=== PATIENT | male | born 1945 | race Caucasian/White ===

== ENCOUNTER 2017-03-26 13:36 | Emergency (ER) | payer OTHER ==
[~2017-03-26] VITALS: Ht 165.1 cm; Wt 73.9 kg
[2017-03-26] MEDS ORDERED: ATOR40TA PO (14:00)
[2017-03-26] MEDS ORDERED: RISP1TAB27 PO (14:00)
--- NOTE | 2017-03-26 14:00 | NUR ---
PT STATES THAT HE IS TAKING ONLY 2 MEDICATION AT HOME ON CONSTANT BASIS, BECAUSE HE CAN NOT AFFORD TO BUY OTHER PRESCRIBED MEDICATIONS.
--- NOTE | 2017-03-26 14:23 | NUR ---
PT WAS CALLED TO ER ROOM , NO ANSWER.
--- NOTE | 2017-03-26 14:38 | NUR ---
PT WAS CALLED TO ER ROOM , NO ANSWER.
== END 2017-03-26 15:38 | disposition left against medical advice (07) ==
LOC: ER 13:37
DX: Z53.21 Procedure and treatment not carried out due to patient leaving prior to being seen by health care provider (principal)
CPT/HCPCS: A4663